=== PATIENT | male | born 1985 | race Caucasian/White ===

== ENCOUNTER 2021-09-29 00:03 | Emergency (ER) | payer OTHER ==
[~2021-09-29] VITALS: Ht 170.2 cm; Wt 72.6 kg
[2021-09-29 00:10] VITALS: BP_SYST 126
[2021-09-29 03:07] LABS: BASOPHILS # (AUTO) 0.1 K/uL (0.0-0.2); EOSINOPHILS # (AUTO) 0.1 K/uL (0.0-0.4); EOSINOPHILS % (AUTO) 0.9 % (0.0-4.0); HEMATOCRIT 39.3 % (36-54); HEMOGLOBIN 13.5 g/dL (14.0-18.0); LYMPHOCYTES # (AUTO) 1.9 K/uL (1.0-5.5); LYMPHOCYTES % (AUTO) 33.2 % (20.5-51.5); MEAN CORPUSCULAR HEMOGLOBIN 29 pg (27-31); MEAN CORPUSCULAR HGB CONC 34 % (32-36); MEAN CORPUSCULAR VOLUME 83 fL (79.0-98.0); MONOCYTES # (AUTO) 0.3 K/uL (0.0-1.0); MONOCYTES % (AUTO) 4.7 % (1.7-9.3); NEUTROPHILS # (AUTO) 3.5 K/uL (1.8-7.7); NEUTROPHILS % (AUTO) 60.2 % (40.0-70.0); PLATELET COUNT (AUTO) 258 K/uL (130-430); RED BLOOD CELL COUNT(AUTO) 4.71 MIL/uL (4.2-6.2); RED CELL DISTRIBUTION WIDTH 13.7 % (9.0-15.0); WHITE BLOOD COUNT (AUTO) 5.8 K/uL (4.8-10.8)
[2021-09-29 03:20] LABS: CALCIUM 8.5 mg/dL (8.4-11.0); CHLORIDE 101 mmol/L (98-107); GLUCOSE 94 mg/dL (70-99); POTASSIUM 4.3 mmol/L (3.5-5.1); SODIUM SERUM 133 mmol/L (136-145); UREA NITROGEN, BLOOD 11 mg/dL (8-21)
[2021-09-29 03:25] LABS: ALANINE AMINOTRANSFERASE 51 U/L (12-78); ALBUMIN 3.8 g/dL (3.4-4.8); ASPARTATE AMINOTRANSFERASE 42 U/L (10-37); LIPASE 17 U/L (73-393); TOTAL BILIRUBIN 0.4 mg/dL (0.0-1.0)
[2021-09-29 03:26] LABS: GFR AFRICAN AMERICAN 142 mL/min (>90)
[2021-09-29 03:27] LABS: ANION GAP < 3 (5-15)
[2021-09-29 04:33] LABS: BILIRUBIN,URINE NEGATIVE (NEGATIVE); BLOOD, URINE NEGATIVE (NEGATIVE); CLARITY/URINE CLEAR (CLEAR); COLOR,URINE YELLOW (YELLOW); GLUCOSE,URINE NEGATIVE (NEGATIVE); KETONES,URINE NEGATIVE (NEGATIVE); LEUKOCYTE ESTERASE ,URINE NEGATIVE (NEGATIVE); NITRITE, URINE NEGATIVE (NEGATIVE); PROTEIN URINE NEGATIVE (NEGATIVE)
[2021-09-29] MEDS ORDERED: SENN8.6T19 PO (04:58)
[2021-09-29] MEDS ORDERED: MAGN296S30 PO (04:58)
[2021-09-29 05:15] VITALS: BP_SYST 126
== END 2021-09-29 05:15 | disposition home or self-care (01) ==
LOC: SED 00:03
DX: K59.00 Constipation, unspecified (principal); Z88.1 Allergy status to other antibiotic agents; Z79.899 Other long term (current) drug therapy
CPT/HCPCS: 36415; 74018; 80053; 81003; 83690; 85025; 99284

== ENCOUNTER 2021-12-07 13:48 | Emergency (ER) | payer OTHER, MEDICAID, SELFPAY ==
[~2021-12-07] VITALS: Ht 170.2 cm; Wt 70.3 kg
[~2021-12-07 13:48] MED LIST: MAGN296S30 PO; SENN8.6T19 PO
--- NOTE | 2021-12-07 15:13 | NUR ---
ER IN TRIAGE examining patient.
[2021-12-07 15:20] VITALS: BP_SYST 105
--- NOTE | 2021-12-07 15:30 | NUR ---
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 citrtate but this time seems worse
[2021-12-07] MEDS ORDERED: POLY17PO4 PO (16:33)
[2021-12-07] MEDS ORDERED: MAGN296S73 PO (16:33)
[2021-12-07 17:25] VITALS: BP_SYST 112
--- NOTE | 2021-12-07 17:25 | NUR ---
Patient given written and verbal discharge instructions and verbalizes understanding. ER MD discussed with patient the results and treatment provided. Patient in stable condition. ID arm band removed. Rx of MIRALAX AND MAGNESIUM CITRATE given. Patient educated on pain management and to follow up with PMD. Pain Scale 0/10 Opportunity for questions provided and answered. Medication side effect fact sheet provided.
== END 2021-12-07 17:25 | disposition home or self-care (01) ==
LOC: SED 13:48
DX: K56.41 Fecal impaction (principal); Z88.0 Allergy status to penicillin
CPT/HCPCS: 74018; 99283; 99284